=== PATIENT | male | born 1985 ===

== ENCOUNTER 2018-05-23 21:39 | Emergency (ER) | payer SELFPAY ==
[2018-05-23 21:43] VITALS: O2SAT 99
[2018-05-23] MEDS ORDERED: Tdap Vaccine 0.5 ml Vial (10-64 yrs) IM ONE (22:11)
--- NOTE | 2018-05-23 22:13 | ED PDOC ---
HPI: Psych/Substance Abuse Time Seen by Provider: 05/23/18 22:11 Chief Complaint (Nursing): Psychiatric Evaluation Chief Complaint (Provider): PSYCH EVAL History Per: Patient (32 Y/O MALE HERE WITH NEPHEW FOR EVALUATION. PATIENT DENIES ANY PSYCHIATRIC ILLNESS/ADMITS TO ETOH INTAKE AND STATES HE GOT MAD TODAY AND STRUCK WALL WITH HANDS. SISTER IS CONCERNED B/C PATIENT HAS BEEN ACTING BIZARRE/AGITATED. UNCLEAR ABOUT ALCOHOL OR DRUG INTAKE. HAS BE[place] [facility] [place] AND GIVEN F/U APPT BUT DID NOT FOLLOW UP.) Past Medical History Reviewed: Historical Data, Nursing Documentation, Vital Signs Vital Signs: Last Vital Signs Temp 97.3 F L 05/23/18 21:40 Pulse 89 05/23/18 21:40 Resp 16 05/23/18 21:40 BP 134/97 H 05/23/18 21:40 Pulse Ox 99 05/23/18 21:40 - Family History Family History: States: No Known Family Hx - Allergies Allergies/Adverse Reactions: Allergies Allergy/AdvReac Type Severity Reaction Status Date / Time No Known Allergies Allergy Verified 05/23/18 21:40 Review of Systems ROS Statement: Except As Marked, All Systems Reviewed And Found Negative Physical Exam - Reviewed Nursing Documentation Reviewed: Yes Vital Signs Reviewed: Yes - Physical Exam Appears: Positive for: Well, Non-toxic, No Acute Distress Head Exam: Positive for: ATRAUMATIC, NORMAL INSPECTION, NORMOCEPHALIC Skin: Positive for: Normal Color, Warm, DRY Eye Exam: Positive for: EOMI, Normal appearance, PERRL ENT: Positive for: Normal ENT Inspection Neck: Positive for: Normal, Painless ROM Cardiovascular/Chest: Positive for: Regular Rate, Rhythm Respiratory: Positive for: CNT, Normal Breath Sounds Gastrointestinal/Abdominal: Positive for: Normal Exam, Soft Back: Positive for: Normal Inspection Extremity: Positive for: Normal ROM Neurological/Psych: Positive for: Awake, Alert, Normal Tone - Laboratory Results Result Diagrams: 05/23/18 22:41 05/23/18 22:41 - ECG O2 Sat by Pulse Oximetry: 99 - Progress ED Course And Treament: seen by crisis. d/w dr. carrillo. diagnosis alcohol induced mood disorder. d/c home. Disposition - Clinical Impression Clinical Impression: Alcohol-induced mood disorder - Patient ED Disposition Is Patient to be Admitted: No - Disposition Referrals: [facility] [Outside] Disposition: Routine/Home Disposition Time: 02:10 Condition: FAIR Instructions: Alcohol Use - When Is Drinking a Problem?
[2018-05-23 22:50] LABS: BASO # 0.1 K/uL (0.0-0.2); BASO % 1.2 % (0.0-2.0); EOS # 0.1 K/uL (0.0-0.7); EOS % 1.6 % (0.0-4.0); HEMOGLOBIN 13.3 g/dL (12.0-18.0); LYMPH # 1.5 K/uL (1.0-4.3); LYMPH % 19.1 % (20.0-40.0); MEAN CELL VOLUME 81.8 fl (80.0-94.0); MEAN CORPUSCULAR HEMOGLOBIN 27.1 pg (27.0-31.0); MEAN CORPUSCULAR HGB CONC 33.1 g/dL (33.0-37.0); MEAN PLATELET VOLUME 8.9 fl (7.2-11.7); MONO # 0.5 K/uL (0.0-0.8); MONO % 6.2 % (0.0-10.0); NEUT # 5.8 K/uL (1.8-7.0); NEUT % 71.9 % (50.0-75.0); RBC 4.89 Mil/uL (4.40-5.90); RED CELL DISTRIBUTION WIDTH 14.7 % (11.5-14.5)
[2018-05-23 23:00] LABS: ALB/GLOB RATIO 1.5 (1.0-2.1); ALBUMIN 4.5 g/dL (3.5-5.0); ALT/SGPT 36 U/L (21-72); AST/SGOT 46 U/L (17-59); BLOOD UREA NITROGEN 14 mg/dl (9-20); CALCIUM 9.1 mg/dL (8.4-10.2); GFR NON-AFRICAN AMERICAN > 60
[2018-05-24 03:13] VITALS: BP 139/80; PULSE 85; RESP 18; TEMP 97.6
--- NOTE | 2018-05-24 13:38 | RAD ---
PROCEDURE: Bilateral hand radiographs. HISTORY: EVALUATE FOR FRACTURE COMPARISON: None. TECHNIQUE: 6 views obtained. FINDINGS: BONES: Right Hand: Normal. No osteoarthritic changes. Left Hand: Normal. No osteoarthritic changes. JOINTS: Right Hand: Normal. Left Hand: Normal. SOFT TISSUES: Right Hand: Normal. Left Hand: Normal. OTHER FINDINGS: None. IMPRESSION: No evidence of acute displaced fracture nor dislocation.
== END 2018-05-24 02:50 | disposition home or self-care (01) ==
LOC: H.ER 21:39
DX: F10.94 Alcohol use, unspecified with alcohol-induced mood disorder (principal); M79.643 Pain in unspecified hand
CPT/HCPCS: 73130; 80053; 82948; 85025; 99285; G0480